=== PATIENT | female | born 1965 | race Caucasian/White ===

== ENCOUNTER 2016-08-01 16:30 | Outpatient (CLI) | payer OTHER ==
--- NOTE | 2016-08-01 16:51 | Diagnostic Imaging Report ---
[facility] [address] [facility].[address] [id number] Report Submission Date: Aug 01, 2016 4:48:54 PM CDT Patient Study Name: SAIMA NEAL Date: Aug 01, 2016 4:33:49 PM CDT Modality Type: CR Gender: F Description: CHEST : 65 Institution: [facility] Physician: THAI PERLA Examination: PA and lateral chest. History: Evaluate lung gauthier. Findings: PA lateral chest demonstrate a normal cardiac and mediastinal silhouette. No focal infiltrate. No effusion. No blunting of the costophrenic margins. Right sided pulmonary granuloma. Osseous structures are appropriate for age. Impression: No acute process. Electronically signed on Aug 01, 2016 4:48:54 PM CDT by: Tl ESPINAL
== END 2016-08-01 16:32 ==
LOC: RAD 16:30
PROVIDERS: ATTEND Physician Assistant
DX: R05 Cough (principal)
CPT/HCPCS: 71020

== ENCOUNTER 2018-12-16 14:38 | Outpatient (CLI) | payer OTHER ==
[2018-12-16 15:00] LABS: BASOPHILS % 0.4 % (0.0-1.5); NEUTROPHILS # 4.7 # k/uL (1.4-7.7)
[2018-12-16 18:39] LABS: eGFR (Non-African) > 60
== END 2018-12-16 14:43 ==
LOC: LAB 14:38
PROVIDERS: ATTEND Family Medicine
DX: R53.1 Weakness (principal)
CPT/HCPCS: 36415; 80053; 84443; 85025